=== PATIENT | female | born 1975 | race Caucasian/White ===

== ENCOUNTER 2017-07-15 23:23 | Emergency (ER) | payer OTHER ==
[2017-07-16 00:08] VITALS: BP 119/57; PULSE 65; TEMP 98.6; BMI 31.8
--- NOTE | 2017-07-16 00:10 | PDOC ---
History of Present Illness - General History Source: Patient Exam Limitations: No Limitations - History of Present Illness Initial Comments: 07/16/17 00:44 The patient is a 41 year old female presenting with her family, with a significant past medical history of high blood pressure (unconfirmed), who presents to the emergency department with abdominal pain for the past 6 years and reports that recently it has been more frequently and more severe during the last 6 hours. She notes that she ate 3-4 hours prior to the onset of the pain, and thinks that her pain may be related to food intake. She describes her pain as pressure and sharp, without radiation. She states that she has had nausea and vomit associated with her chief complaint. She reports that she has seen her PMD who took a stool sample and advised her that her symptoms are due to a viral illness. The patient denies chest pain, shortness of breath, headache and dizziness. Denies fever, chills, diarrhea and constipation. Denies dysuria, frequency, urgency and hematuria. Family history; Diabetes, HTN and Cancer. Allergies: None Past surgical history: None reported Social history: No alcohol, tobacco or drug use reported <Jaret Van - Last Filed: 07/16/17 00:44> <Alysia Lloyd - Last Filed: 07/16/17 01:29> <Kim Jones - Last Filed: 07/16/17 02:44> - General Chief Complaint: Pain, Acute Stated Complaint: STOMACH PAIN Time Seen by Provider: 07/16/17 00:10 Past History <Jaret Van - Last Filed: 07/16/17 00:44> - Suicide/Smoking/Psychosocial Hx Smoking History: Never smoked Have you smoked in the past 12 months: No Information on smoking cessation initiated: No Hx Alcohol Use: No Drug/Substance Use Hx: No <Alysia Lloyd - Last Filed: 07/16/17 01:29> <Kim Jones - Last Filed: 07/16/17 02:44> - Past Medical History Allergies/Adverse Reactions: Allergies Allergy/AdvReac Type Severity Reaction Status Date / Time No Known Allergies Allergy Verified 07/16/17 00:06 Home Medications: Ambulatory Orders NK [No Known Home Medication] 07/16/17 Review of Systems - Review of Systems Able to Perform ROS?: Yes Comments:: 07/16/17 00:44 GENERAL/CONSTITUTIONAL: No fever or chills. No weakness. HEAD, EYES, EARS, NOSE AND THROAT: No change in vision. No ear pain or discharge. No sore throat.- CARDIOVASCULAR: No chest pain or shortness of breath RESPIRATORY: No cough, wheezing, or hemoptysis. GASTROINTESTINAL: (+) Abdominal pain, nausea and vomit. No diarrhea or constipation. GENITOURINARY: No dysuria, frequency, or change in urination. MUSCULOSKELETAL: No joint or muscle swelling or pain. No neck or back pain. SKIN: No rash NEUROLOGIC: No headache, vertigo, loss of consciousness, or change in strength/ sensation. ENDOCRINE: No increased thirst. No abnormal weight change HEMATOLOGIC/LYMPHATIC: No anemia, easy bleeding, or history of blood clots. ALLERGIC/IMMUNOLOGIC: No hives or skin allergy. <Jaret Van - Last Filed: 07/16/17 00:44> *Physical Exam - Vital Signs Last Vital Signs Temp Pulse Resp BP Pulse Ox 98.6 F 65 20 119/57 99 07/16/17 00:07 07/16/17 00:07 07/16/17 00:07 07/16/17 00:07 07/16/17 00:07 - Physical Exam Comments: 07/16/17 00:44 GENERAL: Awake, alert, and fully oriented, in no acute distress HEAD: No signs of trauma, normocephalic, atraumatic EYES: PERRLA, EOMI, sclera anicteric, conjunctiva clear ENT: Auricles normal inspection, hearing grossly normal, nares patent, oropharynx clear without exudates. Moist mucosa NECK: Normal ROM, supple, no lymphadenopathy, JVD, or masses LUNGS: No distress, speaks full sentences, clear to auscultation bilaterally HEART: Regular rate and rhythm, normal S1 and S2, no murmurs, rubs or gallops, peripheral pulses normal and equal bilaterally. ABDOMEN: Soft, nontender, normoactive bowel sounds. No guarding, no rebound. No masses EXTREMITIES : Normal inspection, Normal range of motion, no edema. No clubbing or cyanosis. NEUROLOGICAL: Cranial nerves II through XII grossly intact. Normal speech, normal gait, no focal sensorimotor deficits SKIN: Warm, Dry, normal turgor, no rashes or lesions noted. <Jaret Van - Last Filed: 07/16/17 00:44> - Vital Signs Last Vital Signs Temp Pulse Resp BP Pulse Ox 98.6 F 65 20 119/57 99 07/16/17 00:07 07/16/17 00:07 07/16/17 00:07 07/16/17 00:07 07/16/17 00:07 <Alysia Lloyd - Last Filed: 07/16/17 01:29> - Vital Signs Last Vital Signs Temp Pulse Resp BP Pulse Ox 98.6 F 65 20 119/57 99 07/16/17 00:07 07/16/17 00:07 07/16/17 00:07 07/16/17 00:07 07/16/17 00:07 <Kim Jones - Last Filed: 07/16/17 02:44> ED Treatment Course - LABORATORY CBC & Chemistry Diagram: 07/16/17 01:35 07/16/17 01:35 - ADDITIONAL ORDERS Additional order review: Laboratory Results 07/16/17 07/16/17 01:35 01:35 Sodium 140 Potassium 3.8 Chloride 107 Carbon Dioxide 24 Anion Gap 9 BUN 13 Creatinine 0.7 Creat Clearance w eGFR > 60 Random Glucose 118 H Calcium 8.8 Total Bilirubin 0.4 AST 108 H ALT 77 Alkaline Phosphatase 118 H Total Protein 7.4 Albumin 3.7 Lipase 214 Urine HCG, Qual Negative 07/16/17 01:35 RBC 4.13 MCV 90.4 MCHC 33.7 RDW 12.9 MPV 7.0 L Neutrophils % 69.0 Lymphocytes % 21.7 Monocytes % 8.2 Eosinophils % 0.8 Basophils % 0.3 <Kim Jones - Last Filed: 07/16/17 02:44> Medical Decision Making - Medical Decision Making 07/16/17 01:29 Pt presents to the ED complaining of epigastric pain that has been intermittent for several years. Presents today because her pain is worse than usual. States that her pain started today at 8 am, and was accompanied by one episode of diarrhea. Abdomen is non tender on my exam. Will check labs to rule out bilary or pancreatic disease. Will discharge home if labs are negative. <Alysia Lloyd - Last Filed: 07/16/17 01:29> *DC/Admit/Observation/Transfer - Attestations Scribe Attestion: 07/16/17 00:45 Documentation prepared by Jaret Van, acting as medical doctor for Alysia Lloyd MD <Jaret Van - Last Filed: 07/16/17 00:44> <Alysia Lloyd - Last Filed: 07/16/17 01:29> - Discharge Dispostion Admit: No <Kim Jones - Last Filed: 07/16/17 02:44> Diagnosis at time of Disposition: Abdominal pain - Discharge Dispostion Disposition: HOME Condition at time of disposition: Stable - Patient Instructions Printed Discharge Instructions: DI for Abdominal Pain-Adult
[2017-07-16 01:48] LABS: BASOPHIL 0.3 % (0-2.0); EOSINOPHIL 0.8 % (0-4.5); MCH 30.5 pg (25.7-33.7); MCHC 33.7 g/dl (32.0-36.0); MEAN CELL VOLUME 90.4 fl (80-96); PLATELET COUNT 316 K/MM3 (134-434); RDW 12.9 % (11.6-15.6); WHITE BLOOD COUNT 7.5 K/mm3 (4.0-10.0)
[2017-07-16 02:11] LABS: ALBUMIN 3.7 g/dl (3.4-5.0); ALK PHOS 118 U/L (45-117); ANION GAP 9 (8-16); BILIRUBIN,TOTAL 0.4 mg/dL (0.2-1.0); CALCIUM 8.8 mg/dL (8.5-10.1); CO2 24 mmol/L (21-32); CREATININE 0.7 mg/dL (0.55-1.02); GLUCOSE,RANDOM 118 mg/dL (74-106); SGOT/AST 108 U/L (15-37); SGPT/ALT 77 U/L (12-78); TOT PROT 7.4 g/dl (6.4-8.2)
== END 2017-07-16 02:48 | disposition home or self-care (01) ==
LOC: JER 23:23
DX: R10.84 Generalized abdominal pain (principal)
CPT/HCPCS: 36415; 80053; 83690; 84703; 85025; 99282-25

== ENCOUNTER 2019-06-25 10:01 | Inpatient (IN) | payer OTHER ==
--- NOTE | 2019-06-25 10:50 | PDOC ---
History of Present Illness - General Chief Complaint: Nausea/Vomiting Stated Complaint: ABD. PAIN/ VOMITING Time Seen by Provider: 06/25/19 10:38 History Source: Patient Exam Limitations: Clinical Condition - History of Present Illness Travel History: No Initial Comments: 06/25/19 11:15 Patient with no significant past medical history presented with complaint of 2- day history of epigastric pain with nausea. Patient report vomited 2 days ago but no vomiting after that. Denies diarrhea, constipation, fever, chills. Denies vaginal bleeding or discharge. Patient did not take anything for symptoms Timing/Duration: reports: constant Quality: reports: moderate, cramping Abdominal Pain Onset Location: reports: epigastric Pain Radiation: reports: no radiation Past History - Past Medical History Allergies/Adverse Reactions: Allergies Allergy/AdvReac Type Severity Reaction Status Date / Time No Known Allergies Allergy Verified 06/25/19 10:09 Home Medications: Ambulatory Orders NK [No Known Home Medication] 07/16/17 COPD: No HTN: Yes - Psycho Social/Smoking Cessation Hx Smoking History: Never smoked Have you smoked in the past 12 months: No Hx Alcohol Use: No Drug/Substance Use Hx: No Review of Systems - Review of Systems Able to Perform ROS?: Yes Is the patient limited Albanian proficient: No Constitutional: No: Chills, Fever, Malaise HEENTM: No: Symptoms Reported Respiratory: No: Symptoms reported Cardiac (ROS): No: Symptoms Reported ABD/GI: Yes: Symptoms Reported, See HPI, Nausea, Abdominal cramping (epigastric) . No: Abdominal Distended, Abd. Pain w/ defecation, Blood Streaked Bowels, Constipated, Diarrhea, Difficulty Swallowing, Poor Appetite, Poor Fluid Intake, Rectal Bleeding, Vomiting, Indigestion, Tarry Stools : No: Burning, Dysuria, Discharge, Frequency, Flank Pain, Urgency Musculoskeletal: No: Symptoms Reported, Back Pain Neurological: No: Symptoms reported All Other Systems: Reviewed and Negative *Physical Exam - Vital Signs Last Vital Signs Temp Pulse Resp BP Pulse Ox 98.6 F 62 18 133/62 95 06/25/19 10:10 06/25/19 10:10 06/25/19 10:10 06/25/19 10:10 06/25/19 10:10 - Physical Exam Comments: 06/25/19 11:20 GENERAL: Well developed, well nourished. Awake and alert. No acute distress. HEENT: Normocephalic, atraumatic. PERRLA, EOMI. No conjunctival pallor. Sclera are non-icteric. Moist mucous membranes. Oropharynx is clear. NECK: Supple. Full ROM. CARDIOVASCULAR: Regular rate and rhythm. No murmurs, rubs, or gallops. Distal pulses are 2+ and symmetric. PULMONARY: No evidence of respiratory distress. Lungs clear to auscultation bilaterally. No wheezing, rales or rhonchi. ABDOMINAL: Soft. Mild epigastric tenderness. Non-distended. No rebound or guarding. No organomegaly. Normoactive bowel sounds. MUSCULOSKELETAL Normal range of motion at all joints. SKIN: Warm and dry. Normal capillary refill. NEUROLOGICAL: Alert, awake, appropriate. Gait is normal without ataxia. PSYCHIATRIC: Cooperative. Good eye contact. Appropriate mood General Appearance: Yes: Nourished, Appropriately Dressed. No: Apparent Distress ED Treatment Course - LABORATORY CBC & Chemistry Diagram: 06/25/19 10:45 06/25/19 13:00 - RADIOLOGY Radiology Studies Ordered: Category Date Time Status ABDOMEN US [US] Stat Ultrasound 06/25/19 10:45 Ordered Medical Decision Making - Medical Decision Making 06/25/19 11:1Patient with no medical history presented with complaint of acute epigastric pain for 3 days with nausea and vomiting with resolved vomiting. Patient afebrile and denies diarrhea or constipation. Exam significant for mild tenderness to epigastric region without guarding or rebound. Exam likely gastritis versus cholelithiasis versus cholecystitis. CBC, CMP and lipase lab ordered. UA, urine hCG urine culture lab ordered. Abdominal ultrasound ordered to rule out cholecystitis. Patient will be treated on IV Pepcid 20 mg and p.o. Maalox for abdominal discomfort pending lab results. Normal saline 1 L ordered for IV hydration 06/25/19 15:21 CBC shows elevated white count of 13. Chemistry lab shows elevated LFTs. Abdominal ultrasound shows multiple gallstones with mildly elevated dilated gallbladder could not rule out cholecystitis. Patient will be discharged admitted for management of cholecystitis. Spoke to hospitalist Dr. Gong who request HIDA scan to be ordered for patient. Zosyn antibiotics 3.37g IV ordered for prophylaxis 06/25/19 17:[address] Gong and being consulted by general surgeon Rick Torres Discharge - Discharge Information Problems reviewed: Yes Clinical Impression/Diagnosis: Cholecystitis Abdominal pain Qualifiers: Abdominal location: epigastric Qualified Code(s): R10.13 - Epigastric pain Condition: Stable - Admission Yes - Follow up/Referral - Patient Discharge Instructions - Post Discharge Activity
[2019-06-25 11:07] LABS: BASO % 0.2 % (0-2.0); HEMATOCRIT 42.8 % (32.4-45.2); HEMOGLOBIN 14.2 GM/dL (10.7-15.3); LYMPH % 9.4 % (8-40); MCH 30.3 pg (25.7-33.7); MCHC 33.1 g/dl (32.0-36.0); MEAN CELL VOLUME 91.5 fl (80-96); MEAN PLT VOLUME 7.1 fl (7.5-11.1); NEUT % 83.4 % (42.8-82.8); PLATELET COUNT 392 K/MM3 (134-434); RBC 4.68 M/mm3 (3.60-5.2); RDW 12.8 % (11.6-15.6); WHITE BLOOD COUNT 12.4 K/mm3 (4.0-10.0)
[2019-06-25] MEDS ORDERED: SODIUM CHLORIDE 1,000 ML IV STA (11:20)
[2019-06-25] MEDS ORDERED: FAMOTIDINE 20 MG/50 ML IVPB 20 MG/50 ML MG IVPB ONE ×2 (11:20→11:23)
[2019-06-25] MEDS ORDERED: MAG HYDROX/AL HYDROX/SIMETH 30 ML UNIT-DOSE CUP PO ONE (11:20)
[2019-06-25] MEDS ORDERED: ACETAMINOPHEN 1000 MG/100 ML VIAL (NON FORMULARY) IVPB ONE (11:21)
[2019-06-25] MEDS ORDERED: MAG HYDROX/AL HYDROX/SIMETH 30 ML UNIT-DOSE CUP ONE (11:23)
[2019-06-25 11:39] LABS: PH,URINE 6.5 (5.0-8.0); URINE APPEARANCE CLOUDY; URINE BILIRUBIN NEGATIVE (NEGATIVE); URINE COLOR DK YELLOW; URINE GLUCOSE (UA) NEGATIVE (NEGATIVE); URINE KETONE 2+ (NEGATIVE); URINE LEUK ESTERASE 2+ (NEGATIVE); URINE NITRITE NEGATIVE (NEGATIVE); URINE PROTEIN 2+ (NEGATIVE)
[2019-06-25 13:47] LABS: EPI CELLS 6.9 /HPF (0-5/HPF); URINE RBC 35.8 /hpf (0-4); URINE WBC 78.5 /hpf (0-5)
[2019-06-25 13:48] LABS: HYALINE CASTS 62.58 /lpf (0-8); URINE BACTERIA 322.3 /hpf (NEGATIVE)
[2019-06-25 13:58] LABS: ALBUMIN 3.8 g/dl (3.4-5.0); BILIRUBIN,TOTAL 0.6 mg/dL (0.2-1); BLOOD UREA NITROGEN 13.7 mg/dL (7-18); CREATININE 0.5 mg/dL (0.55-1.3); POTASSIUM 3.8 mmol/L (3.5-5.1); TOT PROT 7.4 g/dl (6.4-8.2)
[2019-06-25] MEDS ORDERED: ACETAMINOPHEN INJECTION 100 ML IVPB ONE (14:12)
[2019-06-25] MEDS ORDERED: PIPERACILLIN/TAZOB 3.375 GM 3.375 GM in DEXTROSE 5%-WATER - 50 ML IVPB ONE (14:48)
[2019-06-25] MEDS ORDERED: SODIUM CHLORIDE 1,000 ML IV SCH ×3 (15:30→17:11)
[2019-06-25] MEDS ORDERED: PIPERACILLIN/TAZOB 3.375 GM 3.375 GM/50 ML BAG IVPB ONE (16:10)
--- NOTE | 2019-06-25 16:25 | PDOC ---
*Physical Exam - Vital Signs Last Vital Signs Temp Pulse Resp BP Pulse Ox 98.6 F 62 18 133/62 95 06/25/19 10:10 06/25/19 10:10 06/25/19 10:10 06/25/19 10:10 06/25/19 10:10 ED Treatment Course - LABORATORY CBC & Chemistry Diagram: 06/27/19 06:30 06/27/19 06:30 - ADDITIONAL ORDERS Additional order review: Laboratory Results 06/25/19 06/25/19 06/25/19 13:00 11:11 11:11 Sodium 138 Potassium 3.8 Chloride 107 Carbon Dioxide 25 Anion Gap 6 L BUN 13.7 Creatinine 0.5 L Est GFR (CKD-EPI)AfAm 139.33 Est GFR (CKD-EPI)NonAf 120.22 Random Glucose 124 H Calcium 9.0 Total Bilirubin 0.6 AST 91 H ALT 161 H Alkaline Phosphatase 138 H Total Protein 7.4 Albumin 3.8 Lipase 205 Urine Color Dk yellow Urine Appearance Cloudy Urine pH 6.5 Ur Specific [place] 1.029 Urine Protein 2+ H Urine Glucose (UA) Negative Urine Ketones 2+ H Urine Blood 2+ H Urine Nitrite Negative Urine Bilirubin Negative Urine Urobilinogen 1.0 Ur Leukocyte Esterase 2+ H Urine WBC (Auto) 78.5 Urine RBC (Auto) 35.8 Urine Casts (Auto) 62.58 U Pathogenic Cast Auto Few granular casts U Epithel Cells (Auto) 6.9 Urine Bacteria (Auto) 322.3 Urine HCG, Qual Negative 06/25/19 10:45 Sodium Cancelled Potassium Cancelled Chloride Cancelled Carbon Dioxide Cancelled Anion Gap Cancelled BUN Cancelled Creatinine Cancelled Est GFR (CKD-EPI)AfAm Cancelled Est GFR (CKD-EPI)NonAf Cancelled Random Glucose Cancelled Calcium Cancelled Total Bilirubin Cancelled AST Cancelled ALT Cancelled Alkaline Phosphatase Cancelled Total Protein Cancelled Albumin Cancelled Lipase Cancelled Urine Color Urine Appearance Urine pH Ur Specific [place] Urine Protein Urine Glucose (UA) Urine Ketones Urine Blood Urine Nitrite Urine Bilirubin Urine Urobilinogen Ur Leukocyte Esterase Urine WBC (Auto) Urine RBC (Auto) Urine Casts (Auto) U Pathogenic Cast Auto U Epithel Cells (Auto) Urine Bacteria (Auto) Urine HCG, Qual 06/25/19 10:45 RBC 4.68 MCV 91.5 MCHC 33.1 RDW 12.8 MPV 7.1 L Neutrophils % 83.4 H D Lymphocytes % 9.4 D Monocytes % 7.0 Eosinophils % 0.0 D Basophils % 0.2 - Medications Given in the ED: ED Medications Discontinued Medications Generic Name Dose Route Start Last Admin Trade Name Ty PRN Reason Stop Dose Admin Acetaminophen 1,000 mg 06/25/19 11:21 06/25/19 14:24 Ofirmev Injection - IVPB 06/25/19 11:22 1,000 mg ONCE ONE Administration Al Hydroxide/Mg Hydroxide 30 ml 06/25/19 11:20 06/25/19 11:30 Mylanta Oral Suspension - PO 06/25/19 11:21 30 ml ONCE ONE Administration Famotidine/Sodium Chloride 20 mg in 50 mls @ 100 mls/hr 06/25/19 11:20 11:30 Pepcid 20 Mg Premixed Ivpb - IVPB 06/25/19 11:49 100 mls/hr ONCE ONE Administration Sodium Chloride 1,000 mls @ 1,000 mls/hr 06/25/19 11:20 06/25/19 11:30 Normal Saline - IV 06/25/19 12:19 1,000 mls/hr ASDIR STA Administration Piperacillin Sod/Tazobactam 50 mls @ 100 mls/hr 06/25/19 14:48 06/25/19 16:21 Sod 3.375 gm/ Dextrose IVPB 06/25/19 15:17 100 mls/hr ONCE ONE Administration Protocol Medical Decision Making - Medical Decision Making 06/25/19 16:24 Patient seen and evaluated with the nurse practitioner. I agree with the overall evaluation, assessment, and management with the following summary of visit: 43-year-old female presents with epigastric/right upper quadrant pain and nausea /vomiting. Right upper quadrant and epigastric tenderness to palpation with guarding. White count 12.4, LFTs elevated including alk phos, ultrasound consistent with acute cholecystitis Given IV antibiotics, surgery consulted, GI consulted, patient admitted. Discharge - Discharge Information Problems reviewed: Yes Clinical Impression/Diagnosis: Cholecystitis Abdominal pain Qualifiers: Abdominal location: generalized Qualified Code(s): R10.84 - Generalized abdominal pain Condition: Improved Disposition: HOME - Follow up/Referral - Patient Discharge Instructions - Post Discharge Activity
--- NOTE | 2019-06-25 16:55 | PN ---
Teaching Attending Note Name of Resident: Diane Irving ATTENDING PHYSICIAN STATEMENT I saw and evaluated the patient. I reviewed the resident's note and discussed the case with the resident. I agree with the resident's findings and plan as documented. SUBJECTIVE: Patient is a 43 Slovenian-speaking Female with no pmhx presents in the ED for having epigastric pain, started on Monday. She had [place] that day. No fever or chills. OBJECTIVE: Vital Signs Temperature 98.6 F 06/25/19 10:10 Pulse Rate 62 06/25/19 10:10 Respiratory Rate 18 06/25/19 10:10 Blood Pressure 133/62 06/25/19 10:10 O2 Sat by Pulse Oximetry (%) 95 06/25/19 10:10 GENERAL: The patient is awake, alert, and fully oriented, in no acute distress. HEAD: Normal with no signs of trauma. EYES: PERRL, extraocular movements intact, sclera anicteric, conjunctiva clear. ENT: Ears normal, oropharynx clear without exudates, moist mucous membranes. NECK: Trachea midline, full range of motion, supple. LUNGS: Breath sounds equal, clear to auscultation bilaterally, no wheezes, no crackles, no accessory muscle use. HEART: Regular rate and rhythm, S1, S2 without murmur, rub or gallop. ABDOMEN: Soft, miepigastric tenderness , nondistended, normoactive bowel sounds , no guarding, no rebound, no hepatosplenomegaly, no masses. EXTREMITIES: 2+ pulses, warm, well-perfused, no edema. NEUROLOGICAL: Cranial nerves II through XII grossly intact. Normal speech, gait not observed. PSYCH: Normal mood, normal affect. SKIN: Warm, dry, normal turgor, no rashes or lesions noted CBCD WBC 12.4 K/mm3 (4.0-10.0) H 06/25/19 10:45 RBC 4.68 M/mm3 (3.60-5.2) 06/25/19 10:45 Hgb 14.2 GM/dL (10.7-15.3) 06/25/19 10:45 Hct 42.8 % (32.4-45.2) 06/25/19 10:45 MCV 91.5 fl (80-96) 06/25/19 10:45 MCHC 33.1 g/dl (32.0-36.0) 06/25/19 10:45 RDW 12.8 % (11.6-15.6) 06/25/19 10:45 Plt Count 392 K/MM3 (134-434) D 06/25/19 10:45 MPV 7.1 fl (7.5-11.1) L 06/25/19 10:45 CMP Sodium 138 mmol/L (136-145) 06/25/19 13:00 Potassium 3.8 mmol/L (3.5-5.1) 06/25/19 13:00 Chloride 107 mmol/L (98-107) 06/25/19 13:00 Carbon Dioxide 25 mmol/L (21-32) 06/25/19 13:00 Anion Gap 6 MMOL/L (8-16) L 06/25/19 13:00 BUN 13.7 mg/dL (7-18) 06/25/19 13:00 Creatinine 0.5 mg/dL (0.55-1.3) L 06/25/19 13:00 Random Glucose 124 mg/dL (74-106) H 06/25/19 13:00 Calcium 9.0 mg/dL (8.5-10.1) 06/25/19 13:00 Total Bilirubin 0.6 mg/dL (0.2-1) 06/25/19 13:00 AST 91 U/L (15-37) H 06/25/19 13:00 ALT 161 U/L (13-61) H 06/25/19 13:00 Alkaline Phosphatase 138 U/L (45-117) H 06/25/19 13:00 Total Protein 7.4 g/dl (6.4-8.2) 06/25/19 13:00 Albumin 3.8 g/dl (3.4-5.0) 06/25/19 13:00 Current Medications Generic Name Dose Route Start Last Admin Trade Name Freq PRN Reason Stop Dose Admin Sodium Chloride 1,000 mls @ 83 mls/hr 06/25/19 15:45 06/25/19 16:21 Normal Saline - IV 83 mls/hr ASDIR MAICOL Administration Home Medications Medication Instructions Recorded NK [No Known Home Medication] 07/16/17 Current Medications Generic Name Dose Route Start Last Admin Trade Name Freq PRN Reason Stop Dose Admin Piperacillin Sod/Tazobactam 50 mls @ 100 mls/hr 06/25/19 18:00 Sod 3.375 gm/ Dextrose IVPB Q8H-IV MAICOL Protocol Piperacillin Sod/Tazobactam 50 mls @ 100 mls/hr 06/25/19 18:00 06/25/19 18:26 Sod 3.375 gm/ Dextrose IVPB 06/26/19 10:29 100 mls/hr Q8H-IV MAICOL Administration Protocol Sodium Chloride 1,000 mls @ 100 mls/hr 06/25/19 17:11 06/25/19 18:26 Normal Saline - IV 100 mls/hr ASDIR MAICOL Administration Morphine Sulfate 1 mg 06/25/19 18:40 06/25/19 18:48 Morphine Sulfate IVPUSH 1 mg Q3H PRN Administration PAIN LEVEL 6-10 US:multiple gallstones with stone in the gallbladder neck measuring 8x7mm. Boerderline thickening of the gallbladder wall, suggestion of edema or a trace of pericholecystic free fluid. cannot r/o acute cholecystitis.CBD dilated 8mm in diameter. fatty infiltrate. ASSESSMENT AND PLAN: Patient is a 43F with no significant pmhx presents in the ED for epigastric pain and was found to have: #Acute Choledecholithiasis/cholecystitis : going for MRCP, and Dr. Dubon are consulted. will place the patient on IV antibiotics Zosyn , ID for consult # Acute Transaminitis: trend # fatty Liver # Acute leukocytosis with UTI continue with Antibiotics Zosyn IV # BMI of 31, weight loss and lefstyle change. DVt Px: SCds for now and [place] consulted
--- NOTE | 2019-06-25 16:56 | HP ---
CHIEF COMPLAINT: mid-epigastric pain PCP: None HISTORY OF PRESENT ILLNESS: 43 Argentine-speaking F w/ no significant pmhx presents in the ED for epigastric pain. Pain started on Monday morning and admits to only taking Tylenol for the pain with minimal symptomatic relief. Admits to having similar pain in the past which lasted 2 hours, but resolved on its own. Also admits to nausea and 10 episodes of NBNB vomiting with some associated sob. Last BM was on Monday. Denies recent travel out side of the country. Denies any hx of abd surgeries. Denies fever, chills, chest pain. Pt states she does feel hungry. No hx of colon cancer in the family. States she usually has bowel movements regularly and denies blood in urine or stool. ER course was notable for: (1) VS stable, WBC 12.4, A/A 91/161, Alk Phos 138 (2) PO Mylanta, NS x1L, IV Pepcid, IV Tylenol, IV Zosyn given (3) Abd U/S showed multiple gallstones in GB neck measuring 8x7mm. Borderline thickening of GB wall, suggesting edema of trace of pericholecystic free fluid. Cannot r/o acute cholecystitis. Limited visualization of CBD appears to be dilated measuring 8mm Surg consulted (Dr. Dubon) with recommendation to obtain MRCP. GI consulted (Dr. Siu) Recent Travel: Denies PAST MEDICAL HISTORY: As per HPI PAST SURGICAL HISTORY: Denies Social History: Smoking: Denies Alcohol: socially Drugs: Denies Lives at home with and son Unemployed Allergies No Known Allergies Allergy (Verified 06/25/19 10:09) HOME MEDICATIONS: Home Medications Medication Instructions Recorded NK [No Known Home Medication] 07/16/17 REVIEW OF SYSTEMS CONSTITUTIONAL: Absent: fever, chills, diaphoresis, generalized weakness, malaise, loss of appetite, weight change HEENT: Absent: rhinorrhea, nasal congestion, throat pain, throat swelling, difficulty swallowing, mouth swelling, ear pain, eye pain, visual changes CARDIOVASCULAR: Absent: chest pain, syncope, palpitations, irregular heart rate, lightheadedness , peripheral edema RESPIRATORY: Absent: cough, shortness of breath, dyspnea with exertion, orthopnea, wheezing, stridor, hemoptysis GASTROINTESTINAL: epigastric pain, nausea, vomiting Absent: abdominal distension, , diarrhea, constipation, melena, hematochezia GENITOURINARY: Absent: dysuria, frequency, urgency, hesitancy, hematuria, flank pain, genital pain MUSCULOSKELETAL: Absent: myalgia, arthralgia, joint swelling, back pain, neck pain SKIN: Absent: rash, itching, pallor HEMATOLOGIC/IMMUNOLOGIC: Absent: easy bleeding, easy bruising, lymphadenopathy, frequent infections NEUROLOGIC: Absent: headache, focal weakness or paresthesias, dizziness, unsteady gait, seizure, mental status changes, bladder or bowel incontinence PHYSICAL EXAMINATION Vital Signs - 24 hr 06/25/19 10:10 Temperature 98.6 F Pulse Rate 62 Respiratory 18 Rate Blood Pressure 133/62 O2 Sat by Pulse 95 Oximetry (%) GENERAL: Pleasant, well-appearing female. NAD. HEENT: AT/NC. EOMI. MMM. No pharyngeal erythema. NECK: Normal range of motion, supple without lymphadenopathy, JVD, or masses. LUNGS: CTA B/L. No wheezes, rhonchi, rales noted. Symmetric chest rise. HEART: RRR. Normal S1, S2. No murmurs noted. ABDOMEN: Obese, soft, NT/ND. Normoactive bowel sounds. +tenderness upon deep palpation in RUQ. -Obrien sign. -McBurney's point. MUSCULOSKELETAL: Normal range of motion at all joints. No bony deformities or tenderness. No CVA tenderness. EXTREMITIES: No peripheral edema noted. 5/5 muscle strength in u/l b/l extremities. NEUROLOGICAL: Cranial nerves II-XII intact. Normal speech. Normal gait. SKIN: Warm, dry, normal turgor, no rashes or lesions noted, normal capillary refill. Laboratory Results - last 24 hr 06/25/19 06/25/19 06/25/19 10:45 10:45 11:11 WBC 12.4 H RBC 4.68 Hgb 14.2 Hct 42.8 MCV 91.5 MCH 30.3 MCHC 33.1 RDW 12.8 Plt Count 392 D MPV 7.1 L Absolute Neuts (auto) 10.3 H Neutrophils % 83.4 H D Lymphocytes % 9.4 D Monocytes % 7.0 Eosinophils % 0.0 D Basophils % 0.2 Nucleated RBC % 0 Sodium Cancelled Potassium Cancelled Chloride Cancelled Carbon Dioxide Cancelled Anion Gap Cancelled BUN Cancelled Creatinine Cancelled Est GFR (CKD-EPI)AfAm Cancelled Est GFR (CKD-EPI)NonAf Cancelled Random Glucose Cancelled Calcium Cancelled Total Bilirubin Cancelled AST Cancelled ALT Cancelled Alkaline Phosphatase Cancelled Total Protein Cancelled Albumin Cancelled Lipase Cancelled Urine Color Urine Appearance Urine pH Ur Specific [place] Urine Protein Urine Glucose (UA) Urine Ketones Urine Blood Urine Nitrite Urine Bilirubin Urine Urobilinogen Ur Leukocyte Esterase Urine WBC (Auto) Urine RBC (Auto) Urine Casts (Auto) U Pathogenic Cast Auto U Epithel Cells (Auto) Urine Bacteria (Auto) Urine HCG, Qual Negative 06/25/19 06/25/19 11:11 13:00 WBC RBC Hgb Hct MCV MCH MCHC RDW Plt Count MPV Absolute Neuts (auto) Neutrophils % Lymphocytes % Monocytes % Eosinophils % Basophils % Nucleated RBC % Sodium 138 Potassium 3.8 Chloride 107 Carbon Dioxide 25 Anion Gap 6 L BUN 13.7 Creatinine 0.5 L Est GFR (CKD-EPI)AfAm 139.33 Est GFR (CKD-EPI)NonAf 120.22 Random Glucose 124 H Calcium 9.0 Total Bilirubin 0.6 AST 91 H ALT 161 H Alkaline Phosphatase 138 H Total Protein 7.4 Albumin 3.8 Lipase 205 Urine Color Dk yellow Urine Appearance Cloudy Urine pH 6.5 Ur Specific [place] 1.029 Urine Protein 2+ H Urine Glucose (UA) Negative Urine Ketones 2+ H Urine Blood 2+ H Urine Nitrite Negative Urine Bilirubin Negative Urine Urobilinogen 1.0 Ur Leukocyte Esterase 2+ H Urine WBC (Auto) 78.5 Urine RBC (Auto) 35.8 Urine Casts (Auto) 62.58 U Pathogenic Cast Auto Few granular casts U Epithel Cells (Auto) 6.9 Urine Bacteria (Auto) 322.3 Urine HCG, Qual ASSESSMENT/PLAN: 43 Argentine-speaking F w/ no significant pmhx presents in the ED for epigastric pain. #Abdominal pain; likely 2/2 acute cholecystitis vs. cholelithiasis -Abd U/S remarkable for multiple gallstones in GB neck measuring 8x7mm. Borderline thickening of GB wall, suggesting edema of trace of pericholecystic free fluid. Cannot r/o acute cholecystitis. Limited visualization of CBD appears to be dilated measuring 8mm -Surg consulted (Dr. Dubon); will order MRCP -ID consulted -IV Zosyn, Mylanta, IV Pepcid given in ED -NPO #Leukocystosis 2/2 UTI -U/A 2+ LE, WBC 78.5 -Cont IV Zosyn #Transaminitis; likely 2/2 GB etiology -trend LFTs -avoid hepatotoxic agents #Dilated CBD; Measured 8 mm on abd u/s -GI consulted -MRCP pending #Prophylaxis DVT: SCDs FEN -NS @ 100 -recheck lytes in AM -NPO Dispo -admit to med-surg Visit type - Emergency Visit Emergency Visit: Yes ED Registration Date: 06/25/19 Care time: The patient presented to the Emergency Department on the above date and was hospitalized for further evaluation of their emergent condition. - New Patient This patient is new to me today: Yes Date on this admission: 06/25/19 - Critical Care Critical Care patient: No ATTENDING PHYSICIAN STATEMENT I saw and evaluated the patient. I reviewed the resident's note and discussed the case with the resident. I agree with the resident's findings and plan as documented. SUBJECTIVE: OBJECTIVE: ASSESSMENT AND PLAN:
[2019-06-25] MEDS ORDERED: DEXTROSE 5%-WATER - 50 ML IVPB ONE (18:24)
[2019-06-25] MEDS ORDERED: PIPERACILLIN/TAZOBACTAM 3.375 GM VIAL IVPB ONE (18:24)
[2019-06-25] MEDS: PIPERACILLIN/TAZOB 3.375 GM 3.375 GM in DEXTROSE 5%-WATER - 50 ML IVPB SCH (18:26)
[2019-06-25 18:32] VITALS: BMI 31.1
[2019-06-25] MEDS: MORPHINE SULFATE 2 MG/ML VIAL IVPUSH PRN ×2 (18:48→22:29)
[2019-06-25] MEDS ORDERED: FLU VACCINE QUAD 60 MCG/0.5 ML (MDV 19-20) IM ONE (20:00)
--- NOTE | 2019-06-25 22:30 | CONSULT ---
Consult Consult Specialty:: General Surgery Reason for Consultation:: acute cholecystitis - History of Present Illness Chief Complaint: abdominal pain History of Present Illness: 43yo female PMH Obesity presents in the ED for epigastric pain. Pain started on Monday morning and admits to only taking Tylenol for the pain with minimal symptomatic relief. Admits to having similar pain in the past which lasted 2 hours, but resolved on its own. Also admits to nausea and 10 episodes of NBNB vomiting with some associated sob. Last BM was on Monday. Denies recent travel out side of the country. Denies any hx of abd surgeries. Denies fever, chills, chest pain. Pt states she does feel hungry. No hx of colon cancer in the family. States she usually has bowel movements regularly and denies blood in urine or stool. we were called to assess. - History Source History Provided By: Patient, Medical Record - Past Medical History ...LMP: 06/01/19 ...: No Additional Medical History: obesity - Alcohol/Substance Use Hx Alcohol Use: No - Smoking History Smoking history: Never smoked Have you smoked in the past 12 months: No Home Medications - Allergies Allergies/Adverse Reactions: Allergies Allergy/AdvReac Type Severity Reaction Status Date / Time No Known Allergies Allergy Verified 06/25/19 10:09 - Home Medications Home Medications: Ambulatory Orders NK [No Known Home Medication] 07/16/17 Review of Systems - Review of Systems Constitutional: denies: Chills, Fever Eyes: denies: Blind Spots, Recent Change in Vision HENT: denies: Difficult Swallowing, Throat Pain Neck: denies: Decreased ROM, Tenderness Cardiovascular: denies: Chest Pain, Palpitations Respiratory: denies: Cough, SOB Gastrointestinal: reports: Abdominal Pain, Bloating, Indigestion. denies: Constipation, Diarrhea Genitourinary: denies: Burning, Pain, Urgency Breasts: reports: No Symptoms Reported. denies: Pain Musculoskeletal: denies: Crepitus, Muscle Pain Integumentary: denies: Pallor, Rash Neurological: denies: Seizure, Syncope Endocrine: denies: Unexplained Weight Gain, Unexplained Weight Loss Hematology/Lymphatic: denies: Easily Bruised, Excessive Bleeding Psychiatric: denies: Anxiety, Depression Physical Exam Vital Signs: Vital Signs Temperature 99.0 F 06/25/19 18:32 Pulse Rate 50 L 06/25/19 18:32 Respiratory Rate 18 06/25/19 18:32 Blood Pressure 105/69 06/25/19 18:32 O2 Sat by Pulse Oximetry (%) 95 06/25/19 18:33 Constitutional: Yes: Well Nourished, No Distress, Calm Eyes: Yes: Conjunctiva Clear, EOM Intact HENT: Yes: Atraumatic, Normocephalic Neck: Yes: Supple, Trachea Midline Cardiovascular: Yes: Regular Rate and Rhythm, S1, S2 Respiratory: Yes: Regular, CTA Bilaterally Gastrointestinal: Yes: Normal Bowel Sounds, Soft, Abdomen, Obese, Tenderness ( RUQ +melo) Renal/: No: CVA Tenderness - Left, CVA Tenderness - Right Breast(s): No: Mass, Skin Changes Musculoskeletal: No: Muscle Pain, Muscle Weakness Extremities: No: Cool, Cyanosis Edema: No Peripheral Pulses WNL: Yes Integumentary: No: Jaundice, Rash Neurological: Yes: Alert, Oriented Psychiatric: Yes: Alert, Oriented Labs: CBC, BMP 06/25/19 10:45 06/25/19 13:00 Imaging - Results Ultrasound: Report Reviewed, Image Reviewed MRI: Pending, Image Reviewed Problem List - Problems (1) Acute cholecystitis due to biliary calculus Assessment/Plan: 43yo female with acute cholecystitis NPO and IVF hydration IV antibiotics adequate analgesia Discussed with patient risks, benefits and alternatives of laparoscopic possible open cholecystectomy, including but not limited to bleeding, infection , injury to adjacent structures, leak or injury, intraabdominal abscess, incisional hernia, need for further procedures, ; alternatives include antibiotics, delayed or no surgery - risks of this include failure of nonoperative therapy, perforation, sepsis, recurrence, . Patient desires to proceed with operation - will take to OR for above. Informed consent signed for same. Thank you for the opportunity to participate in the care of this patient. Problems reviewed: Yes Code(s): K80.00 - CALCULUS OF GALLBLADDER W ACUTE CHOLECYST W/O OBSTRUCTION (2) Obesity (BMI 30.0-34.9) Problems reviewed: Yes Code(s): E66.9 - OBESITY, UNSPECIFIED (3) HLD (hyperlipidemia) Problems reviewed: Yes Code(s): E78.5 - HYPERLIPIDEMIA, UNSPECIFIED (4) Abdominal pain Problems reviewed: Yes Code(s): R10.9 - UNSPECIFIED ABDOMINAL PAIN Qualifiers: Abdominal location: epigastric Qualified Code(s): R10.13 - Epigastric pain (5) Cholecystitis Problems reviewed: Yes Code(s): K81.9 - CHOLECYSTITIS, UNSPECIFIED
[2019-06-26] MEDS ORDERED: DEXTROSE 5%-WATER - 50 ML IVPB ONE ×3 (01:03→16:36)
[2019-06-26] MEDS ORDERED: PIPERACILLIN/TAZOBACTAM 3.375 GM VIAL IVPB ONE ×3 (01:03→16:36)
[2019-06-26] MEDS: PIPERACILLIN/TAZOB 3.375 GM 3.375 GM in DEXTROSE 5%-WATER - 50 ML IVPB SCH ×4 (01:38→17:17)
[2019-06-26] MEDS: MORPHINE SULFATE 2 MG/ML VIAL IVPUSH PRN ×2 (05:57→09:01)
[2019-06-26 07:29] LABS: BASO % 0.2 % (0-2.0); EOS % 0.2 % (0-4.5); HEMATOCRIT 34.1 % (32.4-45.2); HEMOGLOBIN 11.7 GM/dL (10.7-15.3); LYMPH % 16.8 % (8-40); MCH 31.4 pg (25.7-33.7); MCHC 34.4 g/dl (32.0-36.0); MEAN CELL VOLUME 91.2 fl (80-96); MEAN PLT VOLUME 7.1 fl (7.5-11.1); NEUT % 72.8 % (42.8-82.8); PLATELET COUNT 299 K/MM3 (134-434); RBC 3.74 M/mm3 (3.60-5.2); RDW 12.9 % (11.6-15.6)
[2019-06-26 07:48] LABS: BILIRUBIN,TOTAL 0.6 mg/dL (0.2-1); CALCIUM 8.1 mg/dL (8.5-10.1); CREATININE 0.5 mg/dL (0.55-1.3); POTASSIUM 3.6 mmol/L (3.5-5.1); TOT PROT 6.1 g/dl (6.4-8.2)
[2019-06-26] MEDS ORDERED: ENOXAPARIN NA (PORCINE) 40 MG/0.4 ML DISP.SYRIN SQ SCH (10:00)
[2019-06-26] MEDS ORDERED: BUPIVACAINE HCL/PF 0.5% (5 MG/ML) 30 ML VIAL IJ ONE ×3 (10:12→11:21)
[2019-06-26] MEDS ORDERED: MIDAZOLAM HCL 2 MG/2 ML SINGLE DOSE VIAL ONE (10:21)
[2019-06-26] MEDS ORDERED: SUCCINYLCHOLINE CHLORIDE 200 MG/10 ML SYRINGE ONE (10:21)
--- NOTE | 2019-06-26 10:29 | OP ---
Operative Note - Note: Operative Date: 06/26/19 Pre-Operative Diagnosis: acute cholecystitis Operation: laparoscopic cholecystectomy Findings: dialated gallbladder with several large stones. 8mm stone in the cystic duct removed prior to cystic duct division via choledochotomy. cystic duct transected with endo MARION given girth. Post-Operative Diagnosis: Same as Pre-op Surgeon: Joshua Fontana Frit Mixer And Burner: Maryam Beal Anesthesiologist/DELPHI DEVELOPER: Patrica Sharma Anesthesia: General, Local (0.5% marcaine 20ml) Specimens Removed: gallbladder and stones Estimated Blood Loss (mls): 50 Operative Report Dictated: Yes
--- NOTE | 2019-06-26 10:50 | PN ---
Progress Note (short form) - Note Progress Note: GI consulted for cholecystitis and biliary dilation. Attempted to evaluate pt however pt already went to OR this am prior to my evaluation. GI service will follow up post op. Please call if questions in the interim.
[2019-06-26] MEDS ORDERED: DEXAMETHASONE SOD PHOSPHATE 4 MG/1 ML VIAL ONE (10:53)
[2019-06-26] MEDS ORDERED: ROCURONIUM BROMIDE 50 MG/5 ML SYRINGE ONE (11:01)
[2019-06-26] MEDS ORDERED: HYDROmorphone HCl 2 MG/ML VIAL ONE (11:11)
--- NOTE | 2019-06-26 12:12 | EKG ---
Test Reason : Blood Pressure : / mmHG Vent. Rate : 059 BPM Atrial Rate : 059 BPM P-R Int : 132 ms QRS Dur : 084 ms QT Int : 434 ms P-R-T Axes : 020 060 031 degrees QTc Int : 429 ms POOR DATA QUALITY, INTERPRETATION MAY BE ADVERSELY AFFECTED SINUS BRADYCARDIA OTHERWISE NORMAL ECG NO PREVIOUS ECGS AVAILABLE Confirmed by JEFFERY CABALLERO MD ([id number]) on 06/26/2019 12:12:01 PM Referred By: Confirmed By:JEFFERY CABALLERO MD
[2019-06-26] MEDS ORDERED: NEOSTIGMINE METHYLSULFATE 0.5 MG/ML - 10 ML MDV ONE (12:28)
[2019-06-26] MEDS ORDERED: ONDANSETRON 4 MG/2 ML VIAL IVPUSH PRN (12:46)
[2019-06-26] MEDS ORDERED: oxyCODONE HCL 5 MG TABLET PO PRN ×2 (12:49)
[2019-06-26] MEDS ORDERED: ACETAMINOPHEN 325 MG TABLET (FP) PO PRN (12:50)
--- NOTE | 2019-06-26 12:56 | SURG ---
Surgery Engine Room Helper Note Engine Room Helper: Maryam Beal PA-C Date of Service: 06/26/19 Diagnosis: acute cholecystitis Procedure: laparoscopic cholecystectomy I was present for the entirety of the operative procedure. For further detail, please refer to operative report. Visit type - Case Type Case Type: ED Admission - Emergency Emergency Visit: Yes ED Registration Date: 06/25/19 Care time: The patient presented to the Emergency Department on the above date and was hospitalized for further evaluation of their emergent condition. - New patient This patient is new to me today: Yes Date on this admission: 06/26/19
[2019-06-26] MEDS ORDERED: LACTATED RINGERS SOLUTION 1,000 ML/1,000 ML INFUS.BAG IV SCH (13:00)
[2019-06-26 13:57] LABS: INR 1.23 (0.83-1.09); PROTHROMBIN TIME (PATIENT) 14.6 SEC (9.7-13.0)
[2019-06-26] MEDS: LACTATED RINGERS SOLUTION 1,000 ML IV SCH (14:10)
--- NOTE | 2019-06-26 16:19 | PN ---
Progress Note (short form) - Note Progress Note: ID CONSULT DICTATED
[2019-06-26] MEDS ORDERED: PIPERACILLIN/TAZOB 3.375 GM 3.375 GM in DEXTROSE 5%-WATER - 50 ML IVPB SCH (18:00)
--- NOTE | 2019-06-26 18:39 | PN ---
Teaching Attending Note Name of Resident: Nivia Garcia ATTENDING PHYSICIAN STATEMENT I saw and evaluated the patient. I reviewed the resident's note and discussed the case with the resident. I agree with the resident's findings and plan as documented. SUBJECTIVE: minimal pain in abd in RUQ. seen after her sx . no N/V . eating dinner OBJECTIVE: NAD awake, alert, cooperative and pleasant. CV: RRR, 3/6 SM at LLSB . Lungs: CATB Abd:soft, laparoscopic wounds with no discharge. TTP in RUQ . no rebound Ext : No edema or erytehma o n upper or lower ext ASSESSMENT AND PLAN: 43 y/o lady with no PMH who presented with abd painand was found to have acute cholecystitis . 1- acute cholecystitis : MRCP with no CBD stones or dilation . now post op day 0 after CCY - cont diet - will probably stop Abx in am , no perforation or abscess - f/u with sx 2- pancreatic tail cyst : f/u as out pt 3- heart murmur : patietn was made aware of this and the need for ECho as out pt dispo : possible dc home in am
--- NOTE | 2019-06-26 18:59 | PN ---
Physical Exam: SUBJECTIVE: Patient seen and examined in the morning. No acute events overnight. No complaints of chest pain, shortness of breath, abdominal pain, or nausea or vomiting. OBJECTIVE: Vital Signs Period Temp Pulse Resp BP Sys/Rinaldi Pulse Ox Last 24 Hr 95 F-99.3 F 61-83 14-18 109-145/53-79 95-100 GENERAL: The patient is awake, alert, and fully oriented, in no acute distress. HEAD: Normal with no signs of trauma. NECK: Trachea midline, full range of motion, supple. LUNGS: Breath sounds equal, clear to auscultation bilaterally, no wheezes, no crackles, no HEART: Regular rate and rhythm, S1, S2 without murmur, rub or gallop. ABDOMEN: Soft, tender to palpation, nondistended, normoactive bowel sounds. No hepatomegaly. EXTREMITIES: 2+ pulses, warm, well-perfused, no edema. NEUROLOGICAL: Cranial nerves II through XII grossly intact. Laboratory Results - last 24 hr 06/26/19 06/26/19 06/26/19 06:35 06:35 13:06 WBC 9.0 RBC 3.74 Hgb 11.7 Hct 34.1 D MCV 91.2 MCH 31.4 MCHC 34.4 RDW 12.9 Plt Count 299 D MPV 7.1 L Absolute Neuts (auto) 6.5 Neutrophils % 72.8 Lymphocytes % 16.8 D Monocytes % 10.0 Eosinophils % 0.2 D Basophils % 0.2 Nucleated RBC % 0 PT with INR 14.60 H INR 1.23 H Sodium 142 Potassium 3.6 Chloride 110 H Carbon Dioxide 26 Anion Gap 6 L BUN 10.0 Creatinine 0.5 L Est GFR (CKD-EPI)AfAm 139.33 Est GFR (CKD-EPI)NonAf 120.22 Random Glucose 118 H Calcium 8.1 L Total Bilirubin 0.6 AST 33 ALT 103 H Alkaline Phosphatase 113 Total Protein 6.1 L Albumin 3.0 L Blood Type Antibody Screen 06/26/19 13:06 WBC RBC Hgb Hct MCV MCH MCHC RDW Plt Count MPV Absolute Neuts (auto) Neutrophils % Lymphocytes % Monocytes % Eosinophils % Basophils % Nucleated RBC % PT with INR INR Sodium Potassium Chloride Carbon Dioxide Anion Gap BUN Creatinine Est GFR (CKD-EPI)AfAm Est GFR (CKD-EPI)NonAf Random Glucose Calcium Total Bilirubin AST ALT Alkaline Phosphatase Total Protein Albumin Blood Type A POSITIVE Antibody Screen Negative Active Medications Generic Name Dose Route Start Last Admin Trade Name Freq PRN Reason Stop Dose Admin Acetaminophen 650 mg 06/26/19 12:50 Tylenol - PO Q6H PRN fever Fentanyl 50 mcg 06/26/19 12:46 Sublimaze Injection - IVPUSH 06/27/19 12:45 [id number] PRN PAIN-PACU ORDER X 4 DOSES ONLY Lactated Ringer's 1,000 mls @ 75 mls/hr 06/26/19 13:00 06/26/19 14:10 Lactated Ringers Solution IV 0 mls ASDIR MAICOL Administration Piperacillin Sod/Tazobactam 50 mls @ 100 mls/hr 06/26/19 18:00 06/26/19 17:17 Sod 3.375 gm/ Dextrose IVPB 100 mls/hr Q8H-IV MAICOL Administration Protocol Ondansetron HCl 4 mg 06/26/19 12:46 Zofran Injection IVPUSH Q6H PRN NAUSEA AND/OR VOMITING Oxycodone HCl 5 mg 06/26/19 12:49 Roxicodone - PO Q4H PRN PAIN LEVEL 1-5 Oxycodone HCl 10 mg 06/26/19 12:49 Roxicodone - PO Q4H PRN PAIN LEVEL 6-10 ASSESSMENT/PLAN: 43 F with no significant PMH who presents with cholecystitis 1)Cholecystitis -MRI shows no choledecholithiasis or pancreatobiliary duct dilation. Hydropic gallbladder with multiple large gallstones. -Patient had cholecystectomy on 06/26 -Continue oxycodone 5 mg PO and 10 mg PO PRN on pain levels. -Continue tylenol 650 mg PO PRN for fever 2)Transaminitis -continue trending LFT's likely elevated due to cholecystitis 3) Leukocytosis -UTI ruled out, continue trending CBC, likely resolve s/p cholecystectomy 4)Pancreatic tail cyst -Follow up as outpatient F:LR @ 75 ml/hr E: Monitor CMP N: Regular diet DVT: SCD Visit type - Emergency Visit Emergency Visit: Yes ED Registration Date: 06/25/19 Care time: The patient presented to the Emergency Department on the above date and was hospitalized for further evaluation of their emergent condition. - New Patient This patient is new to me today: Yes Date on this admission: 06/26/19 - Critical Care Critical Care patient: No ATTENDING PHYSICIAN STATEMENT I saw and evaluated the patient. I reviewed the resident's note and discussed the case with the resident. I agree with the resident's findings and plan as documented. SUBJECTIVE: OBJECTIVE: ASSESSMENT AND PLAN:
--- NOTE | 2019-06-26 21:50 | CONS ---
GASTROENTEROLOGY CONSULTATION DATE OF CONSULTATION: DATE OF DICTATION: 06/26/2019 Patient is a 43-year-old Croatian-speaking female with no significant past medical history, who presents to the hospital with complaints of epigastric abdominal pain with associated nausea and vomiting. Her symptoms began on Monday morning. She has never had similar symptoms in the past. She denies fevers, chills, hematemesis, constipation, diarrhea, melena, hematochezia, or weight loss. She has never had an endoscopic evaluation. PAST MEDICAL AND SURGICAL HISTORY: As listed in the HPI. ALLERGIES: No known drug allergies. SOCIAL HISTORY: Does not drink, smoke, or use drugs. HOME MEDICATIONS: Denies. FAMILY HISTORY: A history of uterine cancer in the mother. REVIEW OF SYSTEMS: As per the HPI. PHYSICAL EXAMINATION: Vital Signs: Temperature 99, pulse 71, blood pressure 115/61, respiratory rate 18, oxygen saturation 98% on room air. General: No acute distress. HEENT: Anicteric sclera. Cardiovascular: S1, S2. Regular rate and rhythm. Lungs: Bilaterally clear to auscultation. Abdomen: With some post-surgical tenderness. Bowel sounds are present. Extremities: No edema. LABORATORY DATA: White blood cell count on admission was 12.4; currently, it is 9. Hemoglobin 11 and hematocrit 34. MCV 91. Platelet count 299. INR 1.23. Sodium 142, potassium 3.6. BUN 10 and creatinine 0.5. Glucose 118. Total bilirubin 0.6. AST 33, ALT at 103. IMAGING: Patient had abdominal MRI which revealed gallbladder distention, multiple large gallstones, the largest measuring 2.4 cm; demonstrating wall thickening, significant pericholecystic fluid. CBD was normal in diameter. There was no intrahepatic or extrahepatic biliary ductal dilatation. Findings were consistent with acute cholecystitis. There was no evidence of choledocholithiasis. There was also a nonspecific 3-mm pancreatic tail cyst. IMPRESSION: Cholecystitis, status post laparoscopic cholecystectomy. RECOMMENDATION: Pain management. Advance diet as per Surgery. Trend liver tests daily while hospitalized. Encourage ambulation. Please re-consult for any questions or concerns. DO GLENNA CUELLO/[id number]
--- NOTE | 2019-06-26 22:13 | CONS ---
INFECTIOUS DISEASE CONSULTATION DATE OF CONSULTATION: DATE OF DICTATION: 06/26/2019 The patient is a 43-year-old female who is evaluated for acute cholecystitis. She was admitted to the hospital with a 2-day history of epigastric abdominal pain, nausea, and vomiting. On imaging studies, she was found to have stones at the gallbladder neck. She underwent a laparoscopic cholecystectomy. Her course was complicated by elevated white blood cell count. She was empirically treated with Zosyn. At the present time, she is status post laparoscopic cholecystectomy. She is in no acute distress. She has complaints of postoperative incisional pain. PAST MEDICAL HISTORY: As noted. ALLERGIES: No known allergies. LABORATORY DATA: White count 12.4 on admission, presently 9.0; hematocrit 34.1; platelets 299. Creatinine 0.5. Urinalysis: White cells 78. Urine culture pending. PHYSICAL EXAMINATION: General: She is awake and alert. She is in no acute distress. She is not acutely toxic appearing. Vital Signs: Temperature 98.4; blood pressure 115/79; pulse 66, regular; respirations 18 per minute. HEENT: Sclerae anicteric. Heart: Sounds S1, S2. Lungs: Clear. Abdomen: Soft. Positive incisional tenderness. Extremities: Negative for edema. IMPRESSION: 1. Status post laparoscopic cholecystectomy. 2. Leukocytosis, rule out biliary sepsis. Continue empiric antibiotic coverage biliary tract pathogens with Zosyn perioperatively. Thank you for the kind referral. LANCE COLLAZO M.D. [id number]
[2019-06-27] MEDS ORDERED: PIPERACILLIN/TAZOBACTAM 3.375 GM VIAL IVPB ONE ×2 (02:05→09:24)
[2019-06-27] MEDS ORDERED: DEXTROSE 5%-WATER - 50 ML IVPB ONE ×2 (02:06→09:24)
[2019-06-27] MEDS: PIPERACILLIN/TAZOB 3.375 GM 3.375 GM in DEXTROSE 5%-WATER - 50 ML IVPB SCH ×2 (02:28→09:43)
[2019-06-27] MEDS: LACTATED RINGERS SOLUTION 1,000 ML IV SCH (02:31)
[2019-06-27 07:22] LABS: BASO % 0.3 % (0-2.0); EOS % 0.3 % (0-4.5); HEMATOCRIT 30.1 % (32.4-45.2); HEMOGLOBIN 10.2 GM/dL (10.7-15.3); LYMPH % 27.1 % (8-40); MCH 31.2 pg (25.7-33.7); MEAN CELL VOLUME 91.7 fl (80-96); MEAN PLT VOLUME 7.1 fl (7.5-11.1); MONO % 9.8 % (3.8-10.2); NEUT % 62.5 % (42.8-82.8); PLATELET COUNT 274 K/MM3 (134-434); RBC 3.28 M/mm3 (3.60-5.2); RDW 12.5 % (11.6-15.6); WHITE BLOOD COUNT 8.1 K/mm3 (4.0-10.0)
[2019-06-27 07:39] LABS: ALBUMIN 2.6 g/dl (3.4-5.0); BILIRUBIN,TOTAL 0.5 mg/dL (0.2-1); BLOOD UREA NITROGEN 9.2 mg/dL (7-18); CREATININE 0.5 mg/dL (0.55-1.3); POTASSIUM 3.4 mmol/L (3.5-5.1); TOT PROT 5.5 g/dl (6.4-8.2)
[2019-06-27] MEDS ORDERED: POTASSIUM CHLORIDE TABS 20 MEQ TABLET.ER (FP) PO ONE (08:59)
--- NOTE | 2019-06-27 10:45 | OP ---
DATE OF OPERATION: 06/26/2019 PREOPERATIVE DIAGNOSIS: Acute cholecystitis. POSTOPERATIVE DIAGNOSIS: Acute cholecystitis. PROCEDURE: Laparoscopic cholecystectomy. ATTENDING SURGEON: Joshua Fontana MD PRODUCTION SKI REPAIRER: Maryam Beal PA-C ANESTHESIOLOGIST: ANESTHESIA TYPE: General with local. Local consisted of 0.5% Marcaine, a total of 20 mL given in an area block fashion at the port sites. ESTIMATED BLOOD LOSS: 50 mL. INTRAVENOUS FLUID ADMINISTERED: 1 mL. SPECIMEN REMOVED: Gallbladder and stones. BRIEF FINDING: Patient had a dilated gallbladder with several 8-mm large stones in the cystic duct removed prior to cystic duct division expressed via a choledochotomy at the neck. Cystic duct was transected with an Endo-MARION given the increased girth. INDICATION: Patient is a 43-year-old female presenting with acute cholecystitis. She had a diet that was rich in saturated fats. History of gallstones. She was counseled regarding risks, benefits and alternatives to surgical laparoscopic cholecystectomy, signed informed consent and was taken for the procedure. PROCEDURE: Patient was brought to the operating room. She was placed in the supine position on the operating table with the right arm tucked and the left arm extended 90 degrees perpendicular to the body's midline axis. The lower extremities had SCDs placed for compression. She received intravenous antibiotics prior to the start of surgery. She was induced with general anesthesia, endotracheally intubated. We began first with prep and drape of the anterior abdominal wall in standard fashion. Supraumbilical approach was scribed at the skin for Latoya entry and after a formal timeout identifying the operative site and procedure we began first with the supraumbilical approach. It was incised with a 15-blade scalpel. The incision was then deepened and widened through the subcutaneous tissue with Bovie cautery down to the midline fascia of the rectus muscle. The fat was divided and exposed the midline rectus fascia which was then opened and Kochers were used to elevate it into the surgical field. A blunt entry was made and 0 Vicryl was then used to lay in a figure-of-8 for ablation of the Latoya entry port. A 12-mm Latoya port was then installed into the abdomen and pneumoperitoneum was established to 15 mmHg. We began first then with additional port sites. At the subxiphoid position an 11-mm trocar was placed and then 2 additional 5-mm operative retraction ports were placed in the right side of the abdomen. After identifying the gallbladder and sweeping the omentum away there appeared to be an distended edematous gallbladder. Care was then taken to carefully dissect down the structures away from the gallbladder's wall and neck. There appeared to be a large stone impacted at the neck at the junction of the cystic duct. Decision was made then to decompress the gallbladder using a needle which was used to decompress light=colored greenish bile. Approximately 60 mL was aspirated. The gallbladder itself then had a choledochotomy made to milk the stone at the neck back through and out of the gallbladder to allow for dissection of the neck and the cystic duct. The girth of the cystic duct was wide. The choledochotomy was then excluded with the specimen and the neck of the gallbladder was stapled with an Endo-MARION from the subxiphoid position. Once cleared the cystic artery was then identified with its multiple radicals and then controlled with Weck clips and 5-mm clips and then divided. A critical view of safety was achieved and the gallbladder was then removed from the hepatic bed using Bovie cautery and an "L" hook. Once the gallbladder was removed it was sent for final pathologic diagnosis after it was retrieved from the abdomen using EndoCatch bag 10 mm, re-siting the camera to the subxiphoid position. Care was then taken to irrigate the abdomen of all bile spillage, obtain hemostasis through the dissection area with Bovie cautery and remove trocars under direct visualization. The pneumoperitoneum was relieved and the port sites were closed with a needle passer at the subxiphoid position and the umbilicus and at the umbilicus the figure-of-8 ablated the space. Skin was closed with 4-0 Vicryl in interrupted fashion at the port sites and then were sterilely dressed. Patient was awoken from general anesthesia having tolerated procedure well. Instrument counts were correct prior to the end of surgery. The patient was stable throughout. MD RUBEN Vences/[id number]
[2019-06-27 13:38] VITALS: BP 119/70; PULSE 79; TEMP 98.6
--- NOTE | 2019-06-27 14:00 | PN ---
Teaching Attending Note Name of Resident: Nivia Garcia ATTENDING PHYSICIAN STATEMENT I saw and evaluated the patient. I reviewed the resident's note and discussed the case with the resident. I agree with the resident's findings and plan as documented. SUBJECTIVE: No fever or chills. minimal abd pain. No CALDERON . OBJECTIVE: NAD awake, alert, cooperative and pleasant. CV: RRR, 3/6 SM at LLSB . Lungs: CATB Abd:soft, laparoscopic wounds with no discharge. minimal TTP in RUQ . no rebound Ext : No edema or erythema on upper or lower ext ASSESSMENT AND PLAN: 43 y/o lady with no PMH who presented with abd painand was found to have acute cholecystitis . 1- Acute cholecystitis: now post op day 1 after CCY - cont diet - dc Abx . will d/w ID - f/u with sx as out pt 2- Pancreatic tail cyst : f/u as out pt. pt was informed 3- Heart murmur : patient was made aware of this and the need for ECho as out pt Dispo : DC home today
--- NOTE | 2019-06-27 14:43 | PN ---
Progress Note, Physician History of Present Illness: 43yo female PMH Obesity presents in the ED for epigastric pain. Pain started on Monday morning and admits to only taking Tylenol for the pain with minimal symptomatic relief. She has been stable postopertively. she has no complaints - Current Medication List Current Medications: Active Medications Acetaminophen (Tylenol -) 650 mg PO Q6H PRN PRN Reason: fever Lactated Ringer's (Lactated Ringers Solution) 1,000 mls @ 75 mls/hr IV ASDIR MAICOL Last Admin: 06/27/19 02:31 Dose: 75 mls/hr Ondansetron HCl (Zofran Injection) 4 mg IVPUSH Q6H PRN PRN Reason: NAUSEA AND/OR VOMITING Oxycodone HCl (Roxicodone -) 5 mg PO Q4H PRN PRN Reason: PAIN LEVEL 1-5 Oxycodone HCl (Roxicodone -) 10 mg PO Q4H PRN PRN Reason: PAIN LEVEL 6-10 Last Admin: 06/27/19 08:35 Dose: 10 mg - Objective Vital Signs: Vital Signs Temperature 98.6 F 06/27/19 13:37 Pulse Rate 79 06/27/19 13:37 Respiratory Rate 20 06/27/19 13:37 Blood Pressure 119/70 06/27/19 13:37 O2 Sat by Pulse Oximetry (%) 98 06/27/19 09:00 Vital Signs Period Temp Pulse Resp BP Sys/Rinaldi Pulse Ox Last 24 Hr 98.5 F-99.1 F 56-79 18-20 116-125/61-75 98-98 Constitutional: Yes: Well Nourished, No Distress, Calm Eyes: Yes: Conjunctiva Clear, EOM Intact HENT: Yes: Atraumatic, Normocephalic Neck: Yes: Supple, Trachea Midline Cardiovascular: Yes: Regular Rate and Rhythm, S1, S2 Respiratory: Yes: Regular, CTA Bilaterally Gastrointestinal: Yes: Normal Bowel Sounds, Soft. No: Tenderness, Tenderness, Epigastrium ...Rectal Exam: Yes: Deferred Genitourinary: No: CVA Tenderness - Left, CVA Tenderness - Right Breast(s): No: Mass, Skin Changes Musculoskeletal: No: Muscle Pain, Muscle Weakness Extremities: No: Cool, Cyanosis Edema: No Peripheral Pulses WNL: Yes Peripheral Pulses: Left Radial: 2+, Right Radial: 2+, Left Doralis Pedis: 2+, Right Dorsalis Pedis: 2+, Left Femoral: 2+, Right Femoral: 2+ Wound/Incision: Yes: Clean/Dry, Well Approximated, Dressing Dry and Intact Neurological: Yes: Alert, Oriented Psychiatric: Yes: Alert, Oriented Labs: CBC, BMP 06/27/19 06:30 06/27/19 06:30 INR, PTT INR 1.23 (0.83-1.09) H 06/26/19 13:06 Problem List - Problems (1) Acute cholecystitis due to biliary calculus Assessment/Plan: 43yo female with acute cholecystitis POD#1 s/p Laparoscopic Cholecystectomy Advance diet as tolerated adequate analgesia no more labs discharge at the discretion of the primary team Problems reviewed: Yes Code(s): K80.00 - CALCULUS OF GALLBLADDER W ACUTE CHOLECYST W/O OBSTRUCTION (2) Obesity (BMI 30.0-34.9) Problems reviewed: Yes Code(s): E66.9 - OBESITY, UNSPECIFIED (3) HLD (hyperlipidemia) Problems reviewed: Yes Code(s): E78.5 - HYPERLIPIDEMIA, UNSPECIFIED (4) Abdominal pain Problems reviewed: Yes Code(s): R10.9 - UNSPECIFIED ABDOMINAL PAIN Qualifiers: Abdominal location: epigastric Qualified Code(s): R10.13 - Epigastric pain (5) Cholecystitis Code(s): K81.9 - CHOLECYSTITIS, UNSPECIFIED
--- NOTE | 2019-06-27 16:28 | PN.GI ---
GI Progress Note Subjective: No acute events S/P Lap Shabnam Pain at trochar sites Being discharged home today 3mm cyst in tail of pancreas noted on MRCP - Objective Vital Signs: Vital Signs Temperature 98.6 F 06/27/19 13:37 Pulse Rate 79 06/27/19 13:37 Respiratory Rate 20 06/27/19 13:37 Blood Pressure 119/70 06/27/19 13:37 O2 Sat by Pulse Oximetry (%) 98 06/27/19 09:00 Constitutional: Calm Eyes: No: Sclera Icterus Cardiovascular: Yes: Regular Rate and Rhythm Respiratory: Yes: CTA Bilaterally Gastrointestinal Inspection: Yes: Scars (glued trochar sites). No: Distention ...Auscultate: Yes: Normoactive Bowel Sounds ...Palpate: Yes: Tenderness (At trochar sites) ...Percussion: No: Tympanitic Edema: No (No LE edema) Neurological: Yes: Alert Labs: CBC, BMP 06/27/19 06:30 06/27/19 06:30 INR, PTT INR 1.23 (0.83-1.09) H 06/26/19 13:06 Hepatic Panel Total Bilirubin 0.5 mg/dL (0.2-1) 06/27/19 06:30 AST 29 U/L (15-37) 06/27/19 06:30 ALT 85 U/L (13-61) H 06/27/19 06:30 Alkaline Phosphatase 91 U/L (45-117) 06/27/19 06:30 Albumin 2.6 g/dl (3.4-5.0) L 06/27/19 06:30 Problem List - Problems (1) Cholecystitis Assessment/Plan: S/P Lap Shabnam Post op care per surgery Code(s): K81.9 - CHOLECYSTITIS, UNSPECIFIED (2) Pancreatic cyst Assessment/Plan: Diminutive pancreatic cyst at tail of pancreas. follow-up MRI 6 months Code(s): K86.2 - CYST OF PANCREAS
--- NOTE | 2019-06-27 18:48 | DS ---
Physical Exam: SUBJECTIVE: Patient seen and examined in the morning. No acute events overnight. Has been able to urinate but has not had bowel movement or passed gas. Pain located in the surgical sites, and menstrual cycle began after surgery , however no complaints of chest pain, shortness of breath, nausea, vomiting, no diarrhea. Showpad fruit room hand: [id number]. OBJECTIVE: Vital Signs Period Temp Pulse Resp BP Sys/Rinaldi Pulse Ox Last 24 Hr 98.5 F-99.1 F 56-79 18-20 116-125/61-75 98-98 PHYSICAL EXAM GENERAL: The patient is awake, alert, and fully oriented, in no acute distress. HEAD: Normal with no signs of trauma.. LUNGS: Breath sounds equal, clear to auscultation bilaterally, no wheezes, no crackles, no accessory muscle use. HEART: Regular rate and rhythm, S1, S2 without murmur, rub or gallop. ABDOMEN: 3 surgical scars from insertion of trocar and laprascopic devices but no blood or erythema surrounding the region. Tender to palpation in the right upper quadrant of the abdomen. No rebound tenderness. non tender in all other quadrants. Nondistended, hypoactive bowel sounds. EXTREMITIES: 2+ pulses, warm, well-perfused, no edema. NEUROLOGICAL: Cranial nerves II through XII grossly intact. SKIN: Warm, dry, normal turgor, no rashes or lesions noted. LABS Laboratory Results - last 24 hr CBC, BMP 06/27/19 06:30 06/27/19 06:30 Microbiology 06/25/19 11:11 Urine - Urine Clean Catch Urine Culture - Final NO GROWTH OBTAINED HOSPITAL COURSE: Date of Admission:06/25/19 Date of Discharge: 06/27/19 43F with no significant PMH who was admitted for suspected cholecystitis. Right upper quadrant U/S showed multiple gallstones in gallbladder neck and thickening of gallbladder wall and likely dilation of the common bile duct. MRCP was done which showed hyrodopic gallbladder with multiple large gallstones with MRI findings of acute cholecystitis. Decision was made to operate and remove gallbladder. Patient was able to tolerate anesthesia and had successful cholecystectomy, and was discharged on POD#1 as she was tolerating full PO diet and ambulating. Patient was found to have pancreatic tail cyst on imaging, will follow up as outpatient. Relevant Imaging: Abdominal U/S: Multiple gallstones with stone in the gallbladder neck measuring 8x7mm. Borderline thickening of the gallbladder wall is suggestion of edema or a trace of pericholecystic fluid. Cannot rule out acute cholecystitis. Limited visualization of common bile duct that appears to be dilated measuring 8mm in diameter. Abdominal MRCP: Hydropic gallbladder containing multiple large gallstones with MRI findings of acute cholecystitis. Signifcant pericholecystic , carin hepatitis and right abdominal fluid is seen. Underlying gangrenous cholecystitis cannot be excluded. No choledocholithiasis or pancreatobiliary duct dilation. Nonspecific 3 mm pancreatic tail cyst is seen. Minutes to complete discharge: 35 Discharge Summary Problems reviewed: Yes Reason For Visit: CHOLECYSTITIS Condition: Improved - Instructions Diet, Activity, Other Instructions: Postoperative instructions: You had a laparoscopic cholecystectomy on [address] Joshua Fontana of [facility]. Activity: Resume your usual activities gradually, but no heavy exertion or lifting more than 10-15 pounds for 1 month. . You may shower daily starting then , just pat the incision areas dry. No bath or swimming until skin incisions have healed. Eat lightly at first, but advance to your usual diet as tolerated. Pain: For pain, you may use and alternate Tylenol (acetaminophen) 1-2 pills and/ or ibuprofen 200 mg (1-3 pills) every 6 hours each as needed; this means that you can take one OR the other at 3-hour intervals. Do not take more than 4000mg of acetaminophen in a day. Take medications as prescribed or indicated on the labeling. Follow-up: Call Dr. Fontana' office at [phone] to make your postop appointment (Monday in approximately 2 weeks after surgery). Clinic is held in the [facility] on the first floor of [facility]. Call the office if you have: * increasing pain not responsive to pain medication * fever of 101F or higher * vomiting * unusual or increasing bleeding or drainage from wounds * increasing redness or swelling at wound sites * inability to urinate Also, see your primary medical doctor within 1-2 weeks. Return to the Emergency Department if you have any chest pain, dizziness, shortness of breath, or change in symptoms. Referrals: [facility] [place] [Provider Group] Joshua Fontana MD [Staff Physician] - Disposition: HOME - Home Medications Comprehensive Discharge Medication List: Ambulatory Orders Acetaminophen [Tylenol] 650 mg PO Q6H PRN #30 tablet 06/27/19 Ibuprofen [Motrin Ib] 200 mg PO Q8H PRN #30 capsule 06/27/19 This patient is new to me today: No Emergency Visit: Yes ED Registration Date: 06/25/19 Care time: The patient presented to the Emergency Department on the above date and was hospitalized for further evaluation of their emergent condition. Critical Care patient: No - Discharge Referral Referred to [facility] Med [facility].C[facility] No ATTENDING PHYSICIAN STATEMENT I saw and evaluated the patient. I reviewed the resident's note and discussed the case with the resident. I agree with the resident's findings and plan as documented. SUBJECTIVE: OBJECTIVE: ASSESSMENT AND PLAN:
--- NOTE | 2019-06-28 18:10 | PATH ---
Surgical Pathology Report Patient Name: GI FRIEDMAN Med. Rec. #: [id number] /Age/Gender: 1975 (Age: 43) / F Account: [id number] Location: [facility] MED/SURG Taken: 06/26/2019 Received: 06/27/2019 Reported: 06/28/2019 Physicians: Joshua Fontana M.D. Specimen(s) Received GALLBLADDER Clinical History Cholecystitis Final Diagnosis GALLBLADDER, LAPAROSCOPIC CHOLECYSTECTOMY: ACUTE AND CHRONIC CHOLECYSTITIS, CHOLESTEROLOSIS, AND CHOLELITHIASIS. Electronically Signed Nivia Bazan M.D. Gross Description Received in formalin, labeled "gallbladder," is a 10.0 x 3.5 x 3.0 cm. gallbladder with a dilated, stapled cystic duct margin. The outer surface is arriaga-brown with a focal defect and varies from smooth to shaggy. The lumen contains brown, tenacious bile as well as multiple yellow, irregular choleliths ranging from 1.0-2.2 cm in greatest dimension. The mucosa is brown-green with gold cholesterol stippling. The wall of the gallbladder is focally edematous and measures up to 0.7 cm. in thickness. Case Loader Operator sections are submitted in one cassette. /06/27/201906/27/2019
== END 2019-06-27 16:30 | disposition home or self-care (01) | DRG 263 ==
LOC: JER 10:01 → JERBED 14:02 → J7W 17:07
PROVIDERS: ADMIT Internal Medicine; ATTEND Internal Medicine
PROC: 0FT44ZZ Resection of Gallbladder, Percutaneous Endoscopic Approach (ICD-10-PCS; principal; 2019-06-26 11:03)
DX: K80.00 Calculus of gallbladder with acute cholecystitis without obstruction (principal); D72.829 Elevated white blood cell count, unspecified; R74.0 Nonspecific elevation of levels of transaminase and lactic acid dehydrogenase [LDH]; Z68.31 Body mass index [BMI] 31.0-31.9, adult; E66.9 Obesity, unspecified; E78.5 Hyperlipidemia, unspecified; R10.13 Epigastric pain; N39.0 Urinary tract infection, site not specified; R01.1 Cardiac murmur, unspecified; K86.2 Cyst of pancreas; K76.0 Fatty (change of) liver, not elsewhere classified
CPT/HCPCS: 36415; 74181-TC; 76700-TC; 80053; 81003; 83690; 84703; 85025; 85610; 86850; 86900; 86901; 87086; 88304-TC; 93005; 93010; 94010; 94760; 99285-25; J0131; J7030; Q2036